=== PATIENT | male | born 1960 | race Caucasian/White ===

== ENCOUNTER 2021-09-13 18:04 | Inpatient (IN) | payer SELFPAY ==
[2021-09-13 18:48] LABS: #Eosinphils 0.4 thou/uL (0.0-0.7); #Lymphocytes 1.9 thou/uL (1.20-3.40); #Monocytes 0.7 thou/uL (0.11-0.59); #Neutrophils 3.1 thou/uL (1.40-6.50); %Basophils 0.8 % (0.0-1.0); %Eosinophils 7.2 % (0.0-10.0); %Lymphocytes 30.4 % (21.0-51.0); %Monocytes 11.2 % (0.0-10.0); %Neutrophils 50.4 % (42.0-75.0); Hemoglobin 14.8 g/dL (14.0-18.0); Mean Corpuscular HGB CONC 33.2 g/dL (32.0-36.0); Mean Corpuscular Hemoglobin 33.9 pg (27.0-31.0); Mean Platelet Volume 7.9 fL (7.4-10.4); Platelet Count 126 thou/uL (130-400); RBC Distribution Width 13.7 % (11.5-14.5); Red Blood Cell (RBC) Count 4.37 mill/uL (4.70-6.10); White Blood Cell (WBC) Count 6.1 thou/uL (4.8-10.8)
[2021-09-13 19:12] LABS: Bacteria/HPF None Seen HPF (None Seen); Bilirubin Negative (Negative); Blood, Urine Trace (Negative); Clarity Clear (Clear); Glucose, Urine (Dipstick) Normal (Negative); Ketone, Urine Negative (Negative); Leukocyte Negative Leu/uL (Negative); Nitrite Negative (Negative); Protein, Urine (Dipstick) Negative (Neg-Trace); RBC/HPF 0-3 HPF (0-3); Specific Gravity, Urine 1.016 (1.002-1.036); Squamous Epithelial None Seen HPF (0-3); Urobilinogen 3 mg/dL (Less than 2); WBC/HPF 0-3 HPF (0-3)
[2021-09-13 19:14] LABS: Amphetamine Not Detected (NotDetected); Barbiturates Screen Not Detected (NotDetected); Benzodiazepine Screen Not Detected (NotDetected); Cocaine Metabolite Screen Not Detected (NotDetected); Methadone Not Detected (NotDetected); Methamphetamine Not Detected (NotDetected); Opiate Screen Not Detected (NotDetected); Oxycodone Screen Not Detected (NotDetected); Phencyclidine (PCP) Not Detected (NotDetected); THC/Cannabinoid Screen Not Detected (NotDetected); Tricyclic Screen Not Detected (NotDetected)
[2021-09-13 19:20] LABS: Acetaminophen Less than 6.0 mcg/mL (10.0-30.0); Alcohol Less than 10 mg/dL (Less than 10); Salicylate Less than 8.0 mg/dL (15.0-30.0)
[2021-09-13 19:22] LABS: ALT (SGPT) 573 U/L (8-55); AST (SGOT) 629 U/L (5-34); Albumin 3.1 g/dL (3.5-5.0); Alkaline Phosphatase 135 U/L (40-110); Anion Gap 14 mmol/L (10-20); BUN (Urea Nitrogen) 19 mg/dL (8.4-25.7); Bilirubin, Total 1.2 mg/dL (0.2-1.2); Calc. Creatinine Clearance 0 mL/min (70-130); Calcium 9.2 mg/dL (7.8-10.44); Carbon Dioxide 18 mmol/L (22-29); Chloride 108 mmol/L (98-107); Globulin 5.3 g/dL (2.4-3.5); Glucose 169 mg/dL (70-105); Lipase 55 U/L (8-78); Protein, Total 8.4 g/dL (6.0-8.3); Sodium 135 mmol/L (136-145)
[2021-09-13] MEDS ORDERED: Acetaminophen 650 MG Suppository PR PRN (21:14)
[2021-09-13] MEDS ORDERED: Ondansetron PF 4 MG/2 ML Vial IVP PRN (21:14)
[2021-09-13] MEDS ORDERED: Ondansetron ODT 4 MG TAB PO PRN (21:14)
[2021-09-13] MEDS ORDERED: Acetaminophen 325 MG TAB PO PRN (21:14)
[2021-09-13] MEDS: cefTRIAXone\\ROCEPHIN 1 GM in Sodium Chloride 0.9% 100 ML IVPB SCH (22:09)
[2021-09-13 22:19] VITALS: BMI 21.0
[2021-09-13] MEDS: Azithromycin 500 MG in Sodium Chloride 0.9% 250 ML 250 ML IVPB SCH (23:03)
[2021-09-14] MEDS ORDERED: Ziprasidone 20 MG VIAL IM SCH (00:45)
[2021-09-14] MEDS ORDERED: Lactulose 10 GM/15 ML Oral Solution PR SCH (01:00)
[2021-09-14] MEDS ORDERED: HumaLOG 300 UNITS/3 ML VIAL SC PRN (02:19)
[2021-09-14] MEDS ORDERED: Dextrose 50% Abboject 50 ML SYRINGE SLOW IVP PRN (02:19)
[2021-09-14] MEDS ORDERED: Dextrose 5% in Water 1,000 ML IV PRN (02:19)
[2021-09-14 05:52] LABS: #Basophils 0.1 thou/uL (0.0-0.2); #Eosinphils 0.4 thou/uL (0.0-0.7); #Monocytes 0.6 thou/uL (0.11-0.59); %Basophils 1.1 % (0.0-1.0); %Monocytes 9.2 % (0.0-10.0); %Neutrophils 49.8 % (42.0-75.0); Hemoglobin 13.9 g/dL (14.0-18.0); Mean Corpuscular Hemoglobin 33.9 pg (27.0-31.0); Mean Platelet Volume 7.7 fL (7.4-10.4); Platelet Count 108 thou/uL (130-400); RBC Distribution Width 13.6 % (11.5-14.5); Red Blood Cell (RBC) Count 4.09 mill/uL (4.70-6.10)
[2021-09-14 06:02] LABS: HBCM Index 0.15 S/CO (0-0.79); HBSAg Index 0.23 S/CO (0-0.99); Hep A IgM AB Non-Reactive (NonReactive); Hep A IgM S/CO 0.15 S/CO (0-0.79); Hep B Surf Ag Non-Reactive S/CO (NonReactive); Hepatitis B Core IgM Abs Non-Reactive (NonReactive)
[2021-09-14 06:13] LABS: Hep C IgG Ab Reflex HepC Qnt (NonReactive); Hep C Index 8.62 S/CO (0-0.79)
[2021-09-14 06:42] LABS: ALT (SGPT) 548 U/L (8-55); AST (SGOT) 592 U/L (5-34); Albumin 2.9 g/dL (3.5-5.0); Alkaline Phosphatase 118 U/L (40-110); Anion Gap 12 mmol/L (10-20); BUN (Urea Nitrogen) 17 mg/dL (8.4-25.7); Bilirubin, Total 1.7 mg/dL (0.2-1.2); Calc. Creatinine Clearance 84 mL/min (70-130); Calcium 9.4 mg/dL (7.8-10.44); Carbon Dioxide 20 mmol/L (22-29); Chloride 113 mmol/L (98-107); Globulin 4.7 g/dL (2.4-3.5); Glucose 126 mg/dL (70-105); Potassium 3.7 mmol/L (3.5-5.1); Protein, Total 7.6 g/dL (6.0-8.3); Sodium 141 mmol/L (136-145)
[2021-09-14] MEDS: Enoxaparin Sodium 40 MG/0.4 ML SYRINGE SC SCH (08:36)
[2021-09-14] MEDS ORDERED: FLU VACC QS2021-22(6MOS UP)/PF 60 MCG/0.5 ML SYRINGE IM ONE (09:00)
[2021-09-14 11:29] LABS: SARS-CoV-2 PCR by NAA Not Detected (NotDetected)
[2021-09-14] MEDS ORDERED: Lorazepam 0.5 MG TAB PO PRN (12:06)
[2021-09-14] MEDS: HumaLOG 300 UNITS/3 ML VIAL SC PRN (18:23)
[2021-09-14] MEDS: cefTRIAXone\\ROCEPHIN 1 GM in Sodium Chloride 0.9% 100 ML IVPB SCH (22:03)
[2021-09-14] MEDS: Azithromycin 500 MG in Sodium Chloride 0.9% 250 ML 250 ML IVPB SCH (22:36)
[2021-09-14] MEDS ORDERED: Melatonin 3 MG TAB PO SCH (23:30)
[2021-09-15 05:24] LABS: ALT (SGPT) 563 U/L (8-55); AST (SGOT) 623 U/L (5-34); Albumin 2.7 g/dL (3.5-5.0); Alkaline Phosphatase 119 U/L (40-110); Anion Gap 14 mmol/L (10-20); BUN (Urea Nitrogen) 20 mg/dL (8.4-25.7); Bilirubin, Total 1.7 mg/dL (0.2-1.2); Calc. Creatinine Clearance 71 mL/min (70-130); Calcium 9.1 mg/dL (7.8-10.44); Carbon Dioxide 18 mmol/L (22-29); Chloride 110 mmol/L (98-107); Globulin 4.8 g/dL (2.4-3.5); Glucose 96 mg/dL (70-105); Iron 221 ug/dL (65-175); Iron Binding Capacity, Total 246 mcg/dL (261-462); Potassium 4.7 mmol/L (3.5-5.1); Protein, Total 7.5 g/dL (6.0-8.3); Sodium 137 mmol/L (136-145)
[2021-09-15 05:49] LABS: HBSAB Concentration 24.19 mIU/mL; Hep B Surf AB Reactive (NonReactive)
[2021-09-15] MEDS: Furosemide 40 MG TAB PO SCH (08:12)
[2021-09-15] MEDS: Enoxaparin Sodium 40 MG/0.4 ML SYRINGE SC SCH (08:12)
[2021-09-15] MEDS: Spironolactone 25 MG TAB PO SCH (08:12)
[2021-09-15] MEDS ORDERED: Melatonin 3 MG TAB PO PRN (09:02)
[2021-09-15] MEDS ORDERED: Magnevist 469MG/ML 20 ML VIAL ONE (09:20)
[2021-09-15] MEDS: Rifaximin 550 MG TAB PO SCH ×2 (09:27→20:17)
[2021-09-15 10:44] LABS: #Basophils 0.1 thou/uL (0.0-0.2); #Eosinphils 0.5 thou/uL (0.0-0.7); #Monocytes 0.8 thou/uL (0.11-0.59); #Neutrophils 2.6 thou/uL (1.40-6.50); %Eosinophils 9.1 % (0.0-10.0); %Lymphocytes 33.3 % (21.0-51.0); %Monocytes 13.4 % (0.0-10.0); %Neutrophils 43.2 % (42.0-75.0); Hemoglobin 13.3 g/dL (14.0-18.0); Mean Corpuscular HGB CONC 32.3 g/dL (32.0-36.0); Mean Corpuscular Hemoglobin 33.2 pg (27.0-31.0); Platelet Count 99 thou/uL (130-400); RBC Distribution Width 13.5 % (11.5-14.5); Red Blood Cell (RBC) Count 3.99 mill/uL (4.70-6.10); White Blood Cell (WBC) Count 6.1 thou/uL (4.8-10.8)
[2021-09-15 11:44] LABS: INR-International Normal Ratio 1.4; Prothrombin Time 17.1 sec (12.0-14.7)
[2021-09-16] MEDS: Spironolactone 25 MG TAB PO SCH (08:13)
[2021-09-16] MEDS: Rifaximin 550 MG TAB PO SCH ×2 (08:13→20:16)
[2021-09-16] MEDS: Furosemide 40 MG TAB PO SCH (08:13)
[2021-09-16 12:44] LABS: EliA Vaculitis New Method **** NEW METHOD ****; Mitochondrial Ab 2.4 U/mL (<4 Negative)
[2021-09-16] MEDS ORDERED: Amlodipine 10 MG TAB PO SCH (13:15)
[2021-09-16] MEDS ORDERED: Furosemide 40 MG TAB PO SCH (13:30)
[2021-09-16] MEDS ORDERED: Spironolactone 25 MG TAB PO SCH (13:30)
[2021-09-16 15:15] LABS: Alpha-1-Antitrypsin 114 mg/dL (101-187)
[2021-09-16 19:19] LABS: ALT (SGPT) 573 U/L (8-55); AST (SGOT) 595 U/L (5-34); Alkaline Phosphatase 134 U/L (40-110); Anion Gap 14 mmol/L (10-20); BUN (Urea Nitrogen) 22 mg/dL (8.4-25.7); Bilirubin, Total 1.8 mg/dL (0.2-1.2); Calc. Creatinine Clearance 58 mL/min (70-130); Carbon Dioxide 21 mmol/L (22-29); Chloride 102 mmol/L (98-107); Globulin 5.3 g/dL (2.4-3.5); Glucose 200 mg/dL (70-105); Protein, Total 8.3 g/dL (6.0-8.3); Sodium 133 mmol/L (136-145)
[2021-09-16 19:34] LABS: Hemoglobin A1c 6.2 % (4.0-6.0)
[2021-09-16 23:36] LABS: HCV log10 6.017 (.); Hep C PCR-Quant 1040000 IU/mL (.)
[2021-09-17] MEDS ORDERED: Furosemide 40 MG TAB PO SCH (07:30)
[2021-09-17] MEDS ORDERED: Spironolactone 25 MG TAB PO SCH (08:00)
[2021-09-17 08:19] VITALS: BP 125/73; TEMP 97.4
[2021-09-17] MEDS: Rifaximin 550 MG TAB PO SCH (08:28)
[2021-09-17] MEDS: HumaLOG 300 UNITS/3 ML VIAL SC PRN (11:57)
[2021-09-18 16:38] LABS: Smooth Muscle Total ABS 22 Units (0-19)
== END 2021-09-17 12:13 | disposition home or self-care (01) | DRG 441 ==
LOC: ERS 18:04 → T4-B 19:46
PROVIDERS: ADMIT Student in an Organized Health Care Education/Training Program; ATTEND Internal Medicine
DX: K72.00 Acute and subacute hepatic failure without coma (principal); J18.9 Pneumonia, unspecified organism; E87.1 Hypo-osmolality and hyponatremia; E87.2 Acidosis; K76.6 Portal hypertension; Z20.822 Contact with and (suspected) exposure to COVID-19; F10.10 Alcohol abuse, uncomplicated; K70.30 Alcoholic cirrhosis of liver without ascites; I10 Essential (primary) hypertension; F17.210 Nicotine dependence, cigarettes, uncomplicated; F12.10 Cannabis abuse, uncomplicated; D69.59 Other secondary thrombocytopenia; E11.9 Type 2 diabetes mellitus without complications; B18.2 Chronic viral hepatitis C; Z88.1 Allergy status to other antibiotic agents; Z90.49 Acquired absence of other specified parts of digestive tract; Z79.899 Other long term (current) drug therapy
CPT/HCPCS: 36415; 36416; 70450; 71045; 74183; 76705; 80053; 80074; 80306; 80307; 81003; 81015; 81256; 82103; 82105; 82140; 82728; 83036; 83516; 83540; 83550; 83690; 84484; 85025; 85610; 86015; 86706; 86708; 87522; 93005; A9579; J0456; J0696; J1650; J1815; J3486; J3490; J7050; Q0162; U0003; U0005